=== PATIENT | female | born 2000 | race Caucasian/White ===

== ENCOUNTER → 2023-07-09 13:41 | Outpatient (BNVA) | payer OTHER, SELFPAY | PROVIDERS: Family Provider Family Medicine; Visit Provider Nurse Practitioner Women's Health | DX: Z32.00 Encounter for pregnancy test, result unknown (principal) | CPT/HCPCS: 81025 ==

== ENCOUNTER → 2023-07-22 13:14 | Outpatient (BNVA) | payer OTHER, SELFPAY | PROVIDERS: Family Provider Family Medicine; Visit Provider Obstetrics & Gynecology | DX: Z34.91 Encounter for supervision of normal pregnancy, unspecified, first trimester (principal); Z3A.08 8 weeks gestation of pregnancy | CPT/HCPCS: 76817 ==

== ENCOUNTER → 2023-07-30 13:23 | Outpatient (BNVA) | payer OTHER, SELFPAY | PROVIDERS: Family Provider Family Medicine; Visit Provider Nurse Practitioner Women's Health | DX: O99.891 Other specified diseases and conditions complicating pregnancy; O21.9 Vomiting of pregnancy, unspecified; R82.71 Bacteriuria | CPT/HCPCS: 80307; 84315; 84443; 85027; 86592; 86762; 86803; 86850; 86900; 87086; 87340; 87806 ==

== ENCOUNTER → 2023-08-08 08:03 | Outpatient (BNVA) | payer OTHER, SELFPAY | PROVIDERS: Family Provider Family Medicine; Visit Provider Obstetrics & Gynecology | DX: O23.41 Unspecified infection of urinary tract in pregnancy, first trimester (principal); O21.9 Vomiting of pregnancy, unspecified | CPT/HCPCS: 84315; 87077; 87086; 87184 ==

== ENCOUNTER → 2023-08-12 16:20 | Outpatient (BNVA) | payer OTHER, SELFPAY | PROVIDERS: Family Provider Family Medicine; Visit Provider Obstetrics & Gynecology | DX: Z34.90 Encounter for supervision of normal pregnancy, unspecified, unspecified trimester (principal) | CPT/HCPCS: 84315; 87491; 87591; 87624 ==

== ENCOUNTER → 2023-09-09 13:14 | Outpatient (BNVA) | payer OTHER, SELFPAY | PROVIDERS: Family Provider Family Medicine; Visit Provider Obstetrics & Gynecology | DX: Z34.90 Encounter for supervision of normal pregnancy, unspecified, unspecified trimester (principal); Z3A.00 Weeks of gestation of pregnancy not specified | CPT/HCPCS: 82950; 84315 ==

== ENCOUNTER → 2023-10-14 14:22 | Outpatient (BNVA) | payer OTHER, SELFPAY | PROVIDERS: Family Provider Family Medicine; Visit Provider Nurse Practitioner Women's Health | DX: Z34.90 Encounter for supervision of normal pregnancy, unspecified, unspecified trimester (principal); Z3A.00 Weeks of gestation of pregnancy not specified | CPT/HCPCS: 76805 ==

== ENCOUNTER → 2023-11-11 15:25 | Outpatient (BNVA) | payer OTHER, SELFPAY | PROVIDERS: Family Provider Family Medicine; Visit Provider Obstetrics & Gynecology | DX: Z34.92 Encounter for supervision of normal pregnancy, unspecified, second trimester (principal); Z3A.24 24 weeks gestation of pregnancy | CPT/HCPCS: 76816 ==

== ENCOUNTER 2023-12-15 16:03 | Outpatient (CLI) | payer OTHER, SELFPAY ==
[2023-12-15 16:18] VITALS: BP 124/74; PULSE 100
[2023-12-15 16:28] VITALS: BMI 40.1
[2023-12-15 16:34] VITALS: BP 105/67; PULSE 96
[2023-12-15 16:48] VITALS: RESP 16
[2023-12-15 17:00] VITALS: RESP 16
== END 2023-12-15 17:00 | disposition home or self-care (01) ==
LOC: OPOB 16:14 → OBGYN 16:14
PROVIDERS: Family Provider Family Medicine; Visit Provider Obstetrics & Gynecology
DX: O26.899 Other specified pregnancy related conditions, unspecified trimester (principal); Z3A.00 Weeks of gestation of pregnancy not specified; R42 Dizziness and giddiness
CPT/HCPCS: 59025; 99211

== ENCOUNTER → 2023-12-16 08:13 | Outpatient (BNVA) | payer OTHER, SELFPAY | PROVIDERS: Family Provider Family Medicine; Visit Provider Obstetrics & Gynecology | DX: Z34.92 Encounter for supervision of normal pregnancy, unspecified, second trimester (principal); Z3A.25 25 weeks gestation of pregnancy | CPT/HCPCS: 82950; 84315; 85025 ==

== ENCOUNTER → 2023-12-30 08:05 | Outpatient (BNVA) | payer OTHER, SELFPAY | PROVIDERS: Family Provider Family Medicine; Visit Provider Obstetrics & Gynecology | DX: O26.892 Other specified pregnancy related conditions, second trimester (principal); Z3A.25 25 weeks gestation of pregnancy; Z22.330 Carrier of Group B streptococcus | CPT/HCPCS: 82951; 82952; 84315 ==

== ENCOUNTER 2024-01-08 15:41 | Outpatient (CLI) | payer OTHER, SELFPAY ==
[2024-01-08 15:40] VITALS: BMI 41.3
[2024-01-08 16:00] VITALS: BP 125/72; PULSE 96
[2024-01-08 16:10] VITALS: BP 133/76; PULSE 89
[2024-01-08 16:25] VITALS: BP 129/73; PULSE 99
[2024-01-08 16:50] LABS: Basophils % 0.3 %; Eosinophils # 0.1 10^3/uL (0.0-0.8); Eosinophils % 0.6 %; Hematocrit 33.1 % (36-47); Lymphocytes # 1.8 10^3/uL (0.8-4.8); Lymphocytes % 18.6 %; Mean Corpuscular HGB Conc 30.8 g/dL (30-55); Mean Corpuscular Hemoglobin 24.2 pg (27-33); Mean Corpuscular Volume 78.4 fl (85-98); Mean Platelet Volume 10.4 fL (7.4-10.4); Monocytes % 10.2 %; Neutrophils % 69.7 %; Nucleated Red Blood Cells % 0 %; Platelet Count 261 10^3/cmm (157-399); Red Blood Count 4.22 10^6/uL (3.85-5.65); Red Cell Distribution Width 18.6 % (12.1-15.1); White Blood Count 9.62 10^3/uL (3.29-11.43)
[2024-01-08 17:09] LABS: Blood Urine Neg (Negative); Glucose Urine UA Norm (Normal); Ketones Urine Negative (Negative); Protein Urine Neg (Negative); Specific Gravity, Urine 1.015 (1.005-1.030); Urine Appearance Hazy (CLEAR); Urine Color Yellow (Yellow); pH Urine 6 (5-7)
[2024-01-08 17:10] LABS: Bilirubin Urine Neg (Negative); Leukocyte Esterase Urine Trace (Negative); Nitrate Urine Negative (Negative); Urobilinogen Urine Norm (Negative)
[2024-01-08 17:16] LABS: Bacteria Urine 2+ /hpf; Mucus Urine TRACE /hpf; RBC Urine 0-4 /hpf (0-2); Transitional Epi Cells Urine 0-4 /hpf
[2024-01-08 17:17] LABS: Add Urine Culture? No
== END 2024-01-08 17:44 | disposition home or self-care (01) ==
LOC: OPOB 15:41 → OBGYN 15:42
PROVIDERS: Visit Provider Obstetrics & Gynecology
DX: O26.899 Other specified pregnancy related conditions, unspecified trimester (principal); Z3A.00 Weeks of gestation of pregnancy not specified; R42 Dizziness and giddiness
CPT/HCPCS: 36415; 59025; 81001; 85025; 99211

== ENCOUNTER 2024-01-12 13:58 | Outpatient (CLI) | payer OTHER, SELFPAY ==
--- NOTE | 2024-01-12 14:10 | XRR_ITS ---
PROCEDURE INFORMATION: Exam: XR Left Foot Exam date and time: 01/12/2024 2:33 PM Age: 23 years old Clinical indication: Pain; Foot; Left; Additional info: Left foot pain TECHNIQUE: Imaging protocol: Radiologic exam of the left foot. Views: 3 or more views. COMPARISON: No relevant prior studies available. FINDINGS: Bones/joints: Normal. Soft tissues: Normal. XR/XR foot LT min 3V* [id number] IMPRESSION: No acute findings.
== END 2024-01-12 13:59 | disposition home or self-care (01) ==
LOC: RAD 14:04
PROVIDERS: Visit Provider Registered Nurse Neonatal Intensive Care
DX: M79.672 Pain in left foot (principal)
CPT/HCPCS: 73630

== ENCOUNTER → 2024-01-21 08:14 | Outpatient (BNVA) | payer OTHER, SELFPAY | PROVIDERS: Visit Provider Nurse Practitioner Women's Health | DX: Z34.92 Encounter for supervision of normal pregnancy, unspecified, second trimester (principal); Z3A.25 25 weeks gestation of pregnancy | CPT/HCPCS: 84315; 85025 ==

== ENCOUNTER → 2024-01-22 12:00 | Outpatient (BNVA) | payer OTHER, SELFPAY | PROVIDERS: Visit Provider Obstetrics & Gynecology | DX: O35.8XX0 Maternal care for other (suspected) fetal abnormality and damage, not applicable or unspecified (principal); Z3A.00 Weeks of gestation of pregnancy not specified | CPT/HCPCS: 76819 ==

== ENCOUNTER → 2024-01-27 09:34 | Outpatient (BNVA) | payer OTHER, SELFPAY | PROVIDERS: Visit Provider Obstetrics & Gynecology | DX: Z34.90 Encounter for supervision of normal pregnancy, unspecified, unspecified trimester (principal); Z3A.00 Weeks of gestation of pregnancy not specified | CPT/HCPCS: 76819 ==

== ENCOUNTER → 2024-02-03 10:37 | Outpatient (BNVA) | payer OTHER, SELFPAY | PROVIDERS: Visit Provider Obstetrics & Gynecology | DX: O26.892 Other specified pregnancy related conditions, second trimester (principal); Z3A.25 25 weeks gestation of pregnancy | CPT/HCPCS: 76819 ==

== ENCOUNTER 2024-02-03 12:03 | Outpatient (CLI) | payer OTHER, SELFPAY ==
[2024-02-03 12:03] VITALS: BMI 41.4
[2024-02-03 12:16] VITALS: BP 120/63; PULSE 109
[2024-02-03 12:36] VITALS: BP 117/61; PULSE 98
[2024-02-03 12:52] VITALS: BP 117/61; PULSE 98
== END 2024-02-03 12:53 | disposition home or self-care (01) ==
LOC: OPOB 12:08 → OBGYN 12:13
PROVIDERS: Absent Provider Obstetrics & Gynecology; Family Provider Obstetrics & Gynecology; Visit Provider Obstetrics & Gynecology
DX: O16.9 Unspecified maternal hypertension, unspecified trimester (principal); Z3A.00 Weeks of gestation of pregnancy not specified; R51.9 Headache, unspecified
CPT/HCPCS: 59025; 84315; 87081; 99211

== ENCOUNTER 2024-02-06 14:04 | Outpatient (CLI) | payer OTHER, SELFPAY ==
[2024-02-06 14:24] VITALS: BP 112/66; PULSE 105
[2024-02-06 14:39] VITALS: BP 111/62; PULSE 100; BMI 40.4
[2024-02-06 14:54] VITALS: BP 110/62; PULSE 102
== END 2024-02-06 14:58 | disposition home or self-care (01) ==
LOC: OPOB 14:10 → OBGYN 14:11
PROVIDERS: Family Provider Obstetrics & Gynecology; Visit Provider Obstetrics & Gynecology
DX: O35.9XX0 Maternal care for (suspected) fetal abnormality and damage, unspecified, not applicable or unspecified (principal); Z3A.00 Weeks of gestation of pregnancy not specified
CPT/HCPCS: 59025

== ENCOUNTER 2024-02-12 20:20 | Outpatient (CLI) | payer OTHER, SELFPAY ==
[2024-02-12 20:00] VITALS: BMI 41.1
--- OUTSIDE RECORDS SUMMARY | 2024-02-12 20:17 | XMS_ITS | Continuity of Care Document ---
Author Name Unknown Organization [facility] Address [address] [place] [address]- Care Team Providers Care Display And Banner Designer Name Role Phone Zzz, Not On File Doctor Primary Care Physician U navailable Encounter [employer] Number [id number] Date(s): 12/20/23 - 12/20/23 [facility] [address] [place] [phone] Encounter Diagnosis Anemia complicating , third trimester(Discharge Diagnosis) - 12/20/23 Near syncope(Discharge Diagnosis) - 12/20/23 Hypovolemia(Discharge Diagnosis) - 12/20/23 30 weeks gestation of (Discharge Diagnosis) - 12/20/23 Whole body pain(Discharge Diagnosis) - 12/20/23 Discharge Disposition: .Discharge to Home (Routine) Attending Physician: Garo Joyner DO Allergies, Adverse Reactions, Alerts Substance Reaction Severity Status amoxicillin Unknown (origin) Unknown Active Assessment and Plan Extracted from: Title:JAYSON - near syncope Author:James Joyner DO Date:12/20/23 Impression and Plan Diagnosis Whole body pain - AVR73-NP R52. Near syncope - HWO24-RL R55. Hypovolemia - CPE81-QZ E86.1. Anemia complicating , third trimester - XJY60-XD O99.013. 30 weeks gestation of - WHM63-GP Z3A.30. Education and Follow-up: Counseled: Patient. Discharge Planning: Plan to discharge ( To home ), Going Home Undelivered 2021 (CUSTOM), Keep Scheduled Appointments Within 3 to 5 days. Plan: 1) Results reviewed with patient. 2) Rx provided for FeSO4 325mg daily 3) Advised rest, hydration, prn APAP 4) Return precautions and routine discharge instructions reviewed with patient. 5) Routine followup with Dr. Haddad as scheduled Future Appointments Appointment Date:01/07/2024 02:30:00 PM Scheduled Provider: Location:[facility] Appointment Type:Ultrasound 30 Appointment Date:01/07/2024 03:15:00 PM Scheduled Provider:Sandi Nguyen Location:[facility] Appointment Type:Established Patient Future Scheduled Tests Radiology* US RP OB Complete Single 12/08/23 Medications Malia 60 mg oral tablet 60 mg = 1 tab, By mouth, BID, # 60 tab, Refill(s) 0 Start Date: 12/08/23 Status: Ordered Esomeprazole Magnesium Refill(s) 0 Start Date: 12/08/23 Status: Ordered ferrous sulfate 325 mg (65 mg elemental iron) oral tablet 325 mg = 1 tab, By mouth, Daily, # 30 tab, Refill(s) 6 Start Date: 12/20/23 Stop Date: 07/17/24 Status: Ordered Multivitamins oral tablet Refill(s) 0 Start Date: 12/08/23 Status: Ordered Problem List Condition Confirmation Course Effective Dates Status Health St atus Informant Confirmed 05/24/23 Active Confirmed < 11/10/21 Resolved Results Laboratory List Name Date CMP 12/20/23 CBC-d 12/20/23 zCBC Automated Diff 12/20/23 Most recent to oldest [Reference Range]: 1 Anion Gap [2-15 mEq/L] 6 mEq/L (12/20/23 3:12 PM) eGFR CKD-EPI [>=61 mL/min/1.73 m2] 130 m L/min/1.73 m2 (12/20/23 3:12 PM) Glucose, Serum/Plasma [70-100 mg/dL] 89 mg/dL (12/20/23 3:12 PM) WBC [4.8-10.8 Thous/mm3] 11.2 Thous/mm3 *HI* (12/20/23 2:31 PM) Hct [37.0-47.0 %] 32.2 % *LOW* (12/20/23 2:31 PM) Hgb [12.0-16.0 g/dL] 10.1 g/dL *LOW* (12/20/23 2:31 PM) RBC [4.20-5.40 Million/mm3] 4.31 Million /mm3 (12/20/23 2:31 PM) MCV [80.0-100.0 fl] 74.7 fl *LOW* (12/20/23 2: PM) MCH [26.0-34.0 pg] 23.4 pg *LOW* (12/20/23 PM) MCHC [31.0-36.5 g/dL] 31.4 g/dL (12/20/23: PM) RDW [10.4-14.4 %] 13.5 % (12/20/23 PM) Platelets [130-440 Thous/mm3] 280 Thous/ mm3 (12/20/23: PM) MPV [9.4-12.4 fl] 10.9 fl (12/20/23 PM) AutoNeutrophil [43.0-78.0 %] 73.3 % (12/20/23 PM) AutoLymphs [20.0-40.0 %] 16.4 % *LOW* (12/20/23) AutoMono [2.0-10.0 %] 8.6 % (12/20/23: PM) AutoEo [0.0-7.0 %] 0.6 % (12/20/23: PM) Sodium [136-145 mEq/L] 137 mEq/L (12/20/23 3:12 PM) Potassium [3.5-5.1 mEq/L] 4.2 mEq/L (12/20/23 3:12 PM) Chloride [98-107 mEq/L] 108 mEq/L *HI* (12/20/23 3:12 PM) AbsNeut [2.0-8.0 Thous/mm3] 8.2 Thous/mm 3 *HI* (12/20/23: PM) CO2 [21-32 mEq/L] 23 mEq/L (12/20/23 3:12 PM) BUN [7-18 mg/dL] 5 mg/dL *LOW* (12/20/23 3:12 PM) Creatinine [0.55-1.02 mg/dL] 0.57 mg/dL (12/20/23 3:12 PM) AbsLymph [1.0-4.0 Thous/mm3] 1.8 Thous/m m3 (12/20/23 2:31 PM) AbsMono [0.1-1.0 Thous/mm3] 1.0 Thous/mm 3 (12/20/23 2:31 PM) Bilirubin, Total [0.2-1.0 mg/dL] 0.3 mg/ dL (12/20/23 3:12 PM) AbsEo [0.0-0.5 Thous/mm3] 0.1 Thous/mm3 (12/20/23 2:31 PM) AbsBaso [0.0-0.2 Thous/mm3] 0.0 Thous/mm 3 (12/20/23 2:31 PM) AutoBaso [0.0-2.5 %] 0.3 % (12/20/23 2: PM) Calcium [8.3-10.6 mg/dL] 9.4 mg/dL (12/20/23 3:12 PM) Protein Total [6.4-8.5 g/dL] 6.8 g/dL (12/20/23 3:12 PM) Albumin [3.4-5.0 g/dL] 3.1 g/dL *LOW* (12/20/23 3:12 PM) AST [15-37 U/L] 18 U/L (12/20/23 3:12 PM) Alk Phos [45-117 U/L] 75 U/L (12/20/23 3:12 PM) ALT [10-49 U/L] 19 U/L (12/20/23 3:12 PM) Imm. Grans % [0-5 %] <5 % (12/20/23 2:31 PM) Imm. Grans # [0.0-0.5 Thous/mm3] <0.5 Th ous/mm3 (12/20/23 2:31 PM) ANC-AbsNeutCount 8.2 Thous/mm3 *NA* (12/20/23 2: PM) Vital Signs Most recent to oldest [Reference Range]: 1 2 Blood Pressure 129/68 (12/20/23 1:51 PM) Height (inches) (Clinical) 67 in (12/20/23 1:53 PM) 67 in (12/20/23 1:40 PM) Weight (kg) (Clinical) 113.4 kg (12/20/23 1:53 PM) 113.4 kg (12/20/23 1:40 PM) BMI (Clinical) 39.1 kg/m2 (12/20/23 1:53 PM) 39.1 kg/m2 (12/20/23 1:40 PM) Scale Type Standing (12/20/23 1:40 PM) Social History Social History Type Response Smoking Status Never smoker; Smokel ess tobacco use: Never; Has the patient smoked in the last 365 days, even once? No entered on: 12/08/23 Sex Female Hospital Discharge Instructions Patient Education 12/20/2023 16:00:52 Going Home Undelivered 2021 (CUSTOM) Going Home Undelivered Report to your Doctor if you have any of the following changes: ??? A regular pattern of cramping or contractions that does not decrease with a change in activity. ??? Vaginal bleeding or leaking. ??? Your baby moves less than normal. ??? Nausea, vomiting or diarrhea lasting more than 24 hours. ??? Trouble or pain with urination. ??? Severe headache or changes in your vision. Call your doctor right away if you have ANY major health changes. Proper Use of Seat Belt During : Missing Image - the embedded image is not supported Not Correct Correct Monitoring Your Baby???s Activity: Every baby has their own activity pattern. You will learn your baby???s daily pattern. A drop in your baby???s activity during the 8th and 9th month of needs to be examined. It may mean that your baby is in a long sleep pattern or that your baby needs help. Remember that skipping meals ornot drinking enough fluids could also cause your baby to move less. Monitor Your Baby Daily: ??? Count your baby???s movements as soon as you wake up in the morning. If you awaken but do not get up, turn on your side, and count movements. ??? Your baby should move a TOTAL of 10 times by early afternoon. ??? If you have not counted 10 movements by early afternoon: ??? Drink juice or milk. ??? Eat a snack. ??? Then lie down. ??? Continue counting for 1 hour or until 10 total movements are reached. ??? Call your doctor right away if your baby does not move 10 times in 1 hour. You may be asked to come to the office or hospital to be monitored. Be sure to go to all regularly scheduled doctor???s appointments. November 2021 Follow Up Care 12/20/2023 13:36:17 With:Keep Scheduled Appointments Address:Unknown When:3 to 5 days History and physical note * Garo Joyner DO: PERFORM, MODIFY, SIGN, VERIFY Event Display: History and Physicals Authored Date: [id number] Patient: MONIKA BARBOZA Age: 23 years Sex: Female : 2000 Associated Diagnoses: None Author: Garo Joyner DO Basic Information Admit information: Medical screening exam: seen at 1400 . Source of history: Self. History limitation: None. Chief Complaint dizziness, body pain, rib pain History of Present Illness Patient of Dr. Haddad in [place] who is 23yo at 30.0 weeks presents with complaints of 7 days of intermittently feeling lightheaded and dizzy when standing up, heart racing at times, diffusebody pain described as muscle cramp, and bilateral lower rib pain. Denies ANDERSON, vision changes, epigastric or RUQ pain, chest pain or sob. Denies VB, LOF, dysuria. FM normal. Review of Systems Constitutional: Fatigue, No fever, No chills. Eye: Negative. Ear/Nose/Mouth/Throat: Negative. Respiratory: No shortness of breath, No cough. Cardiovascular: Tachycardia, No chest pain, No palpitations, No peripheral edema. Gastrointestinal: No nausea, No vomiting, No diarrhea, No constipation, No abdominal pain. Genitourinary: No dysuria, No hematuria, No vaginal discharge. Hematology/Lymphatics: No bruising tendency, No bleeding tendency. Endocrine: No polyuria. Immunologic: Not immunocompromised. Musculoskeletal: Muscle pain, No back pain. Integumentary: No rash, No pruritus. Neurologic: Alert and oriented X4, No numbness, No tingling, No headache. Psychiatric: No anxiety, No depression. All other systems are negative Health Status Allergies: Allergies (1) Active Severity Reaction amoxicillin Unknown Unknown (origin) Current medications: (Selected) Inpatient Medications Ordered pentafluoropropane-tetrafluoroethane topical: 1 spray, SPRAY, Route: Topical, as needed, PRN, IV Start, Start Date: 12/20/23 14:28:00 COAGULATOR, Duration: 90 Days, Stop date: 03/19/24 15:27:00 CDT, Routine, Disp Location: [facility], [facility] DISP Documented Medications Documented Malia 60 mg oral tablet: 60 mg = 1 tab, By mouth, BID, # 60 tab, Refill(s) 0 Esomeprazole Magnesium: Refill(s) 0 Multivitamins oral tablet: Refill(s) 0 Problem list: Active Problems (1) Histories Family History: MOTHER Cervical cancer PGF Alcohol abuse AUNT Diabetes mellitus Procedure history: No active procedure history items have been selected or recorded. Social History Social & Psychosocial Habits Alcohol 12/08/2023 Use: Denies Employment/School 12/08/2023 Highest education: High school Status: director of manufacturing operations Home/Environment 12/08/2023 Marital Status Seatbelt Use Always Spouse's Name Donta Barboza, 25yo., Occ: Engine Tear Down, Edu: Bakari, Active Involvement, Etta Nutrition/Health 12/08/2023 Diet description: No Diet Restrictions Caffeine intake amount: Occasional Calcium Intake Limited Intake Sexual 12/08/2023 Sexually active: Yes Substance Abuse 12/08/2023 Use: Denies Tobacco 12/08/2023 Smoking Status Never smoker Smokeless tobacco use: Never Has the patient smoked in the last 365 days, even once? No . Gestational Age (EGA) and SHAWNA * Note: EGA calculated as of 12/20/2023 SHAWNA: 02/28/2024 EGA*: 30 weeks Type: Authoritative Method Date: 12/08/2023 Method: Reported EGA/SHAWNA (12/08/2023) Confirmation: Confirmed Description: Due date Comments: -- Entered by: Chana Stewart RN on 12/08/2023 Other SHAWNA Calculations for this : No additional SHAWNA calculations have been recorded for this History (0,0,1,0) # 1 Baby 1 Outcome Date: 2021 Outcome or Result: Gest Age: Unknown Outcome: -- Sex: -- Physical Examination Vital Signs 12/20/2023 13:51 COAGULATOR Pulse Rate 102 BP Systolic 129 BP Diastolic 68 MAP 88 Respiratory Rate 17 Temperature 96.5 DegF Temperature Route Temporal scanner Weight 113.4 kg 250 lb (13:53) Height 170.18 cm 67 in (13:53) Body Mass Index 39.1 (13:53) General: Alert and oriented, No acute distress. HENT: Normocephalic. Gastrointestinal: Soft, Non-tender, gravid uterus. Abdomen: No guarding, No rebound tenderness. Musculoskeletal Normal strength. No tenderness. no C/C/E. Integumentary: Warm, Dry, [place]. Neurologic: Alert, Oriented. Cognition and Speech: Oriented, Speech clear and coherent. Psychiatric: Cooperative, Appropriate mood & affect. Obstetric Exam Uterus: not tender. [place]/ Baby A evaluation: movement present, heart tones (within normal limits (110 to 160 bpm), variability moderate (6-25 bpm over baseline), acceleration pattern present - greater than 15 bpm over baseline for 15 seconds but less than 2 minutes, decelerations absent), assessment of heart tracing reassuring heart rate. No contractions noted. Review / Management Differential diagnosis: Anemia, hypoglycemia, hypovolemia. Results review: All Results 12/20/2023 15:12 COAGULATOR Sodium 137 mEq/L Potassium 4.2 mEq/L Chloride 108 mEq/L HI CO2 23 mEq/L Glucose, Serum/Plasma 89 mg/dL BUN 5 mg/dL LOW Creatinine 0.57 mg/dL eGFR CKD-EPI 130 mL/min/1.73 m2 Anion Gap 6 mEq/L Calcium 9.4 mg/dL Protein Total 6.8 g/dL Albumin 3.1 g/dL LOW Bilirubin, Total 0.3 mg/dL Alk Phos 75 U/L ALT 19 U/L AST 18 U/L 12/20/2023 14:31 COAGULATOR WBC 11.2 Thous/mm3 HI RBC 4.31 Million/mm3 Hgb 10.1 g/dL LOW Hct 32.2 % LOW MCV 74.7 fl LOW MCH 23.4 pg LOW MCHC 31.4 g/dL RDW 13.5 % Platelets 280 Thous/mm3 MPV 10.9 fl AutoNeutrophil 73.3 % AutoLymphs 16.4 % LOW AutoMono 8.6 % AutoEo 0.6 % AutoBaso 0.3 % AbsNeut 8.2 Thous/mm3 HI AbsLymph 1.8 Thous/mm3 AbsMono 1.0 Thous/mm3 AbsEo 0.1 Thous/mm3 AbsBaso 0.0 Thous/mm3 Imm. Grans % <5 % Imm. Grans # <0.5 Thous/mm3 ANC-AbsNeutCount 8.2 Thous/mm3 NA . ECG interpretation: Within normal limits, Normal sinus rhythm, No ST-T changes, No ectopy. Documentation reviewed: Records from referring physician. Condition: Stable. Impression and Plan Diagnosis Whole body pain - VTL97-CS R52. Near syncope - BKS18-FB R55. Hypovolemia - BJG89-LG E86.1. Anemia complicating , third trimester - GCW99-PU O99.013. 30 weeks gestation of - SPT54-YU Z3A.30. Education and Follow-up: Counseled: Patient. Discharge Planning: Plan to discharge ( To home ), Going Home Undelivered 2021 (CUSTOM), Keep Scheduled Appointments Within 3 to 5 days. Plan: 1) Results reviewed with patient. 2) Rx provided for FeSO4 325mg daily 3) Advised rest, hydration, prn APAP 4) Return precautions and routine discharge instructions reviewed with patient. 5) Routine followup with Dr. Haddad as scheduled Electronically signed by:Garo Joyner DO 12/20/23 16:29 Cardiology * Declan CARBALLO, Cesar Lewis: SIGN, VERIFY Event Display: EKG 12-Lead Authored Date: [id number] Patient Care team information Care Team Personnel Name: Devan, Not On File Doctor Position: PX Physician - Dermatology Member Role: Primary Care Physician Name: Garo Joyner DO Position: Physician-SCHOOL NURSE Med Service: Obstetrics & Gynecology Member Role: Attending Physician Address: Address: [address] [place] [id number] [place] [address] Name: Lizy Betancourt RN Position: OB-Nurse MAR Member Role: Nurse
--- NOTE | 2024-02-12 20:20 | PC.NURSE ---
This nurse at bedside at this time assessing patient status including FHT of 153 doppled then remaining in the 150s for approximately 2 minutes, nurse inquired about movements and patient stated baby's movements were felt throughout the day but less than usual , patient also stated she felt the baby moving at time of dopple.
[2024-02-12 20:50] VITALS: BP 110/57; PULSE 105
[2024-02-12 21:20] VITALS: BP 117/65; PULSE 110
[2024-02-12 21:49] VITALS: BP 117/65; PULSE 110
== END 2024-02-12 21:49 | disposition home or self-care (01) ==
LOC: OPOB 20:43 → OBGYN 20:44
PROVIDERS: Visit Provider Obstetrics & Gynecology
DX: O36.8190 Decreased fetal movements, unspecified trimester, not applicable or unspecified (principal); Z3A.00 Weeks of gestation of pregnancy not specified; R10.9 Unspecified abdominal pain
CPT/HCPCS: 59025; 99211

== ENCOUNTER → 2024-02-17 10:08 | Outpatient (BNVA) | payer OTHER, SELFPAY | PROVIDERS: Visit Provider Obstetrics & Gynecology | DX: Z34.92 Encounter for supervision of normal pregnancy, unspecified, second trimester (principal); Z3A.25 25 weeks gestation of pregnancy | CPT/HCPCS: 76819; 84315 ==